=== PATIENT | male | born 1960 | race Caucasian/White ===

== ENCOUNTER → 2016-11-05 08:47 | Outpatient (CLI) | payer MEDICAID | END | disposition home or self-care (01) | LOC: D.CT 08:47 | DX: M25.512 Pain in left shoulder (principal); R93.8 Abnormal findings on diagnostic imaging of other specified body structures ==

== ENCOUNTER → 2017-01-31 08:42 | Outpatient (CLI) | payer MEDICAID | END | disposition home or self-care (01) | LOC: D.CT 01-28 08:30 | DX: R91.8 Other nonspecific abnormal finding of lung field (principal) ==

== ENCOUNTER 2018-11-07 07:11 | Day surgery (SDC) | payer MEDICAID ==
[~2018-11-07] VITALS: Ht 182.9 cm; Wt 90.7 kg
[~2018-11-07 07:11] MED LIST: IBUPROFEN800 MG PO; PROPRANOLOL HCL80 MG PO
[2018-11-07 08:57] VITALS: BP 116/68; Ht 182.9 cm; Wt 90.7 kg
--- NOTE | 2018-11-07 13:17 | NUR ---
CONSULTED ANESTHESIA REGARDING DECREASED O2 SAT. AUSCULTATION OF LUNGS REVEALED BILATERAL EXPIRATORY WHEEZES. VERBAL ORDERS RECEIVED FROM DR RIVAS TO ADMINISTER DUONEB UPDRAFT TREATMENT IN PACU X1 NOW. ORDERS RECEIVED AND IMPLEMENTED. WILL CONTINUE TO MONITOR. O2 SAT 92% SIMPLE MASK.
--- NOTE | 2018-11-07 15:33 | NUR ---
1400 PT HAD BNC OFF AND WAS WIPING NOSE DUE TO SMALL AMOUNT OF NASAL BLEEDING. WILL KEEP BNC AND EVALUATE OXYGEN SATS. 1430 BNC ON AT 3L/MIN 1500 DECREASED BNC TO 2L/MIN ENCOURAGING PATIENT TO COUGH AND DEEP BREATH. 1506 PT BOTHERED WITH NASAL BLEEDING THAT IS SMALL IN AMOUNT BUT HE FEELS IS ANNOYING. AFRIN SPRAY 1 IN EACH NARE GIVEN. 1520 NASAL BLEEDING AT A MINIMUM. BNC OFF AND REMINDING PT TO TAKE DEEP BREATHS. HE IS STILL SLEEPY FROM ANESTHESIA.
--- NOTE | 2018-11-07 16:26 | NUR ---
1605 IV DC'D. NO BLEEDING AT SITE. BANDAID APPLIED. PT HAS VERY MINIMAL BLEEDING FROM LEFT NARE. STATES HE IS READY TO GO HOME.
--- NOTE | 2018-11-10 08:45 | HP ---
PATIENT: PIERRE BREWSTER MEDICAL RECORD: [id number] ACCOUNT: [id number] LOCATION:[facility] : 60 ADMISSION DATE: 11/07/18 PCP: DAFNE DUTTA MD HISTORY AND PHYSICAL EXAMINATION HISTORY: Mr. Brewster is a 58-year-old male. He is having problems with left nasal obstruction, drainage from his left eye and pressure. He has been found to have left chronic maxillary sinusitis and extensive left nasal polyposis. He has been admitted for left nasal polypectomy and left maxillary antrostomy. PAST MEDICAL HISTORY: Otherwise negative. PAST SURGICAL HISTORY: Knee surgery last year. CURRENT MEDICATIONS: Ibuprofen p.r.n. and propranolol. ALLERGIES: No known drug allergies. PHYSICAL EXAMINATION: GENERAL: He is healthy appearing. FACE: Normal and symmetric. No lesions. EYES: Sclerae and conjunctivae are normal. He does have some tearing from the left eye. Senior Materials Scientist told him he had ectropion. NOSE: Left side is totally obstructed with nasal polyps. The right side looks normal. ORAL CAVITY AND OROPHARYNX: Tongue protrudes in midline. Palate is normal. NECK: No masses. No adenopathy. CHEST: Clear. CARDIOVASCULAR: Regular rate and rhythm. No murmur. DIAGNOSTIC DATA: CT shows soft tissue density filling left nasal cavity and left maxillary sinusitis changes. IMPRESSION: Left nasal polyposis and left maxillary sinusitis. PLAN: Left middle meatal antrostomy and left endoscopic nasal polypectomy. TRANSINT:[id number] Voice Confirmation ID: [id number] DOCUMENT ID: [id number] ESTEVAN LOPEZ MD at 0845 CC: [id number] DICTATION DATE: 11/06/18 1014 CONTROL SPECIALIST: 11/06/18 1053 [facility] 11/07/18 [place] [id number]
--- NOTE | 2018-11-10 08:45 | OP ---
PATIENT NAME: PIERRE ORTIZ MEDICAL RECORD: [id number] :60 LOCATION:[facility] ADMISSION DATE: SURGEON: ESTEVAN EDWARDS MD DATE OF OPERATION: 11/07/2018 PREOPERATIVE DIAGNOSES: Nasal obstruction, nasal polyposis, left chronic maxillary sinusitis. POSTOPERATIVE DIAGNOSES: Nasal obstruction, nasal polyposis, left chronic maxillary sinusitis. PROCEDURES: Left endoscopic nasal polypectomy, left middle meatal antrostomy. SURGEON: Estevan Edwards MD ANESTHESIA: General orotracheal. BLOOD LOSS: Less than 10 cc. SPECIMENS: Large polyps in the left nasal cavity. Cultures from the left maxillary sinus. COMPLICATIONS: None. PACKING: None. DISPOSITION: Recovery stable. DESCRIPTION OF PROCEDURE: He was brought to the operating room and placed in supine position, sedated and intubated by anesthesia. The table was turned 90 degrees. Head drape was applied. He was positioned for sinus surgery. He had been decongested with Afrin preoperatively. Already, a headlight and nasal speculum were used to examine the nose. Right side was examined first. It was normal. Left side was examined, massive polyps filling the nasal cavity of the inferior turbinate and lateral nasal wall and the polyps were injected with a total of less than 1 cc of 1% lidocaine with 1:100,000 epinephrine. Two Afrin pledgets were placed in the left side of the nose. He was positioned, prepped and draped in usual fashion. Then, again the nose was examined using the 0-degree scope. The right side was examined first. The inferior middle turbinate, middle meatus, nasal vault were all normal as was the nasopharynx, there was some septal deviation, but no masses, polyps, or drainage. On the right side, all the Afrin pledgets were removed. The left side had massive nasal polyps obstructing most of the view, but as they were pushed those posteriorly and inject the root of the middle turbinate with about of 0.25 cc 1% lidocaine with 1:100,000 epinephrine as well as the uncinate and then the bulk of the polyps were emanating from the middle meatus. This was grasped with a Maribel forceps removing very large massive polyps filling the entire nasal cavity and nasopharynx were removed. That exposed the middle meatus. Microdebrider was used to remove some polypoid tissue around that and the ostia was opened. Curved olive tip suction was inserted and a Yvonne trap was used to suction out the contents, and this was sent for cultures. The sinus was then irrigated repeatedly with saline and suctioned out. The microdebrider was used to remove the remaining polyp from the middle meatus and take down the basically the ethmoid bulla and just the very anterior ethmoid to get the remaining bulky polyps. Posteriorly, the nasal cavity and nasopharynx appeared normal. [facility] OPERATIVE REPORT [id number] DAYRON ORTIZSUMEET RODRIGEZ pledget was placed back in the middle meatus. Everything was examined. The nose was repeatedly irrigated. At the end of the case, the Afrin pledget was removed. Some mupirocin ointment syringe was placed in the ethmoid, maxillary sinuses. He was awakened, extubated, and transported to recovery in good condition. No complications. TRANSINT:[id number] Voice Confirmation ID: [id number] DOCUMENT ID: [id number] ESTEVAN EDWARDS MD at 0845 CC: [id number] DICTATION DATE: 11/07/18 1321 [employer]PER[employer]OR [employer]: 11/07/18 1452 [facility] 11/07/18 [facility] [address] [place] [address]
== END 2018-11-07 16:14 | disposition home or self-care (01) ==
LOC: D.OPS 07:11 → D.PAN 11:00 → D.OPS 16:14
DX: J34.89 Other specified disorders of nose and nasal sinuses (principal); J33.0 Polyp of nasal cavity; J32.0 Chronic maxillary sinusitis; Z01.812 Encounter for preprocedural laboratory examination